=== PATIENT | female | born 1970 | race Caucasian/White ===

== ENCOUNTER 2018-11-11 15:36 | Emergency (ER) | payer SELFPAY ==
[~2018-11-11] VITALS: Ht 172.7 cm; Wt 76.0 kg
[2018-11-11 15:39] VITALS: BP 122/64; PULSE 68; RESP 18; Ht 172.7 cm; Wt 76.0 kg
[2018-11-11] MEDS ORDERED: ACETAMINOPHEN 500 MG TAB PO STA (16:32)
[2018-11-11] MEDS ORDERED: IBUP-1542 PO (16:46)
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
== END 2018-11-11 17:10 | disposition home or self-care (01) ==
LOC: FTE 15:36
DX: M54.5 Low back pain (principal); M54.2 Cervicalgia
CPT/HCPCS: 99282